=== PATIENT | male | born 1990 | race American Indian/Alaskan Native ===

== ENCOUNTER 2021-05-10 17:37 | Emergency (ER) | payer SELFPAY ==
[2021-05-10] MEDS ORDERED: ZIPRASIDONE MESYLATE 20 MG VIAL IM ONE (19:11)
[2021-05-10 19:59] LABS: Basophils % (Auto) 0.2 % (0.0-1.8); Eosinophils # (Auto) 0.2 K/mm3 (0.0-0.4); Eosinophils % (Auto) 2.5 % (0.0-4.3); Hematocrit 45.9 % (35.5-45.6); Hemoglobin 14.7 gm/dl (11.8-15.2); Lymphocytes # (Auto) 2.1 K/mm3 (1.2-5.4); Lymphocytes % (Auto) 25.2 % (13.4-35.0); Mean Corpuscular HGB Conc 32 % (32-34); Mean Corpuscular Volume 87 fl (84-94); Monocytes # (Auto) 0.5 K/mm3 (0.0-0.8); Monocytes % (Auto) 6.6 % (0.0-7.3); Platelet Count 165 K/mm3 (140-440); Red Blood Count 5.24 M/mm3 (3.65-5.03); Red Cell Distribution Width 15.4 % (13.2-15.2)
[2021-05-10 20:00] LABS: BUN/Creatinine Ratio 12; Blood Urea Nitrogen 12 mg/dL (9-20); Hemolysis Index 9
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
[2021-05-11 00:09] VITALS: BP 101/53
== END 2021-05-11 00:10 | disposition home or self-care (01) ==
LOC: ED 17:37
DX: R45.851 Suicidal ideations (principal)
CPT/HCPCS: 36415; 80048; 85025; 96372; 99284; J3486; 80320; G0480